=== PATIENT | female | born 1965 | race Caucasian/White ===

== ENCOUNTER 2023-08-19 11:33 | Day surgery (SDC) | payer BC ==
[~2023-08-19] VITALS: Ht 170.2 cm; Wt 115.0 kg
[~2023-08-19 11:33] MED LIST: ATOR10; ESCI20; ESTRADIOL10 MCG; EUTHYROX50 MCG; LOSARTAN POTAS100 M1; MOBIC15 MG
[2023-08-19 13:41] VITALS: BP 144/82
--- NOTE | 2023-08-19 14:22 | NUR ---
08/19/23 1425 Aimee Weinberg PT IS IN THE RECLINER WITH CHAIRSIDE. VSS. OP LIMB IS ELEVATED ON A PILLOW WITH ICE BEHIND THE KNEE. PT STATES PAIN IS CURRENTLY 3/10 AND HAS AP[address]OXIMATELY [address] RN IS GOING OVER DISCHARGE INSTRUCTIONS VERBALLY WITH PATIENT NOW.
== END 2023-08-19 14:40 | disposition home or self-care (01) ==
LOC: ORSCSDS 11:33
PROVIDERS: Podiatrist Foot & Ankle Surgery
PROC: 0SGQ04Z Fusion of Left Toe Phalangeal Joint with Internal Fixation Device, Open Approach (ICD-10-PCS; principal; 2023-08-19 13:15)
PROC: 0L8W0ZZ Division of Left Foot Tendon, Open Approach (ICD-10-PCS; principal; 2023-08-19 13:15)
DX: M20.42 Other hammer toe(s) (acquired), left foot (principal); I10 Essential (primary) hypertension; E11.9 Type 2 diabetes mellitus without complications; E66.01 Morbid (severe) obesity due to excess calories; Z68.41 Body mass index [BMI] 40.0-44.9, adult; F41.9 Anxiety disorder, unspecified; F32.A Depression, unspecified; E78.5 Hyperlipidemia, unspecified; E03.9 Hypothyroidism, unspecified; Z79.899 Other long term (current) drug therapy
CPT/HCPCS: 82947; A9270; C1713; J0171; J0690; J1100; J2250; J2405; J2704; J2795; J3010; J7120

== ENCOUNTER 2024-06-01 08:13 | Day surgery (SDC) | payer BC ==
[~2024-06-01] VITALS: Ht 170.2 cm; Wt 106.9 kg
[~2024-06-01 08:13] MED LIST changes: +Bupivacaine 0.5% HCl 5 MG/ML 30MLVIAL ONE; +EZET10 PO; +Midazolam HCl 1MG / ML 2ML Vial ONE; +propofoL 20 ML IV ONE
[2024-06-01] MEDS ORDERED: Lactated Ringer's 1,000 ML IV ONE ×2 (08:21→09:05)
[2024-06-01] MEDS ORDERED: NS 50 ML IV ONE (08:21)
[2024-06-01] MEDS ORDERED: CeFAZolin Sodium 2,000 MG VIAL ONE (08:21)
--- NOTE | 2024-06-01 09:38 | NUR ---
06/01/24 0929 Keshav Guo, BLOCK TIMEOUT 0930 BLOCK STARTED 0932 BLOCK STARTED 0930
[2024-06-01] MEDS ORDERED: FentaNYL Citrate 50 MCG/ML 2 ML Injection ONE ×4 (09:54→12:05)
[2024-06-01] MEDS ORDERED: Bupivacaine 0.25% Epi 1:200000 30 ML Vial INJ ONE ×2 (10:06)
[2024-06-01] MEDS ORDERED: Dexamethasone Sod Phos 10 MG/ML 1ML VIAL ONE (10:17)
[2024-06-01] MEDS ORDERED: Ketorolac Tromethamine 30mg Vial ONE (10:17)
[2024-06-01] MEDS ORDERED: Ondansetron HCl 2 MG / ML 2ML Vial ONE (10:17)
[2024-06-01] MEDS ORDERED: ePHEDrine Sulfate 50 MG/ML 1ML Injection ONE (10:46)
[2024-06-01] MEDS ORDERED: HYDROcodone 5-APAP 325 TAB ONE (12:05)
[2024-06-01 13:41] VITALS: BP 147/94
== END 2024-06-01 13:11 | disposition home or self-care (01) ==
LOC: ORSCSDS 08:13
DX: M19.071 Primary osteoarthritis, right ankle and foot (principal); M20.41 Other hammer toe(s) (acquired), right foot; I10 Essential (primary) hypertension; E11.9 Type 2 diabetes mellitus without complications; E66.9 Obesity, unspecified; Z68.36 Body mass index [BMI] 36.0-36.9, adult; F41.9 Anxiety disorder, unspecified; F32.A Depression, unspecified; Z79.899 Other long term (current) drug therapy
CPT/HCPCS: 82947; A9270; C1713; C1776; J0690; J1100; J1885; J2250; J2405; J2704; J3010; J7120